=== PATIENT | female | born 1995 | race Caucasian/White ===

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

== ENCOUNTER 2017-03-24 01:05 | Emergency (ER) | payer BC ==
[~2017-03-24] VITALS: Ht 157.5 cm; Wt 54.2 kg
[~2017-03-24 01:05] MED LIST changes: -BCPILLS PO; +FEXO1TAB46 PO; +LEVO1TAB19 PO; -LORA10TA44 PO; +TRAZ1TAB5 PO; +ZLF/50 PO
[2017-03-24 01:11] VITALS: TEMP 36.5; Ht 157.5 cm; Wt 54.2 kg
[2017-03-24 02:52] LABS: BASO % 0.4 %; BASO ABS # 0.03 K/uL (0-0.2); COMPLETE YES; EOS % 6.1 %; HEMATOCRIT 38.7 % (37-47); IG% 0.3 %; LYMPH % 35.4 %; MEAN CELL VOLUME 85.2 fL (80-100); MEAN CORPUSCULAR HEMOGLOBIN 28.4 pg (25-34); MEAN CORPUSCULAR HGB CONC 33.3 g/dl (32-36); MEAN PLATELET VOLUME 10.6 fL (7.4-10.4); MONO % 7.6 %; NEUT % 50.2 %; PLATELET COUNT 285 K/uL (130-400); RED BLOOD COUNT 4.54 M/uL (4.2-5.4)
[2017-03-24] MEDS ORDERED: ALBUT/IPRATROP 3MG/0.5MG NEB 3 ML VIAL INH STA (03:03)
[2017-03-24 03:10] LABS: BUN/CREATININE RATIO 14.2 (10-20); CALCIUM 9.1 mg/dl (8.5-10.1); CREATININE 0.7 mg/dl (0.60-1.20); POTASSIUM 3.5 mmol/L (3.5-5.1)
[2017-03-24 03:16] LABS: PREG INTERNAL NEGATIVE QC NEG CLEAR BACKGROUND; PREG INTERNAL POSITIVE QC POS CONTROL LINE
[2017-03-24] MEDS ORDERED: METH4PAK PO (04:00)
--- NOTE | 2017-03-24 04:00 | EMERGENCY ROOM VISIT NOTE ---
History First contact with patient: 02:26 Chief Complaint: RESPIRATORY PROBLEMS Stated Complaint: TIGHT CHEST,BRONCHITIS,ASTHMA History of Present Illness The patient is a 22 year old female who presents to the Emergency Room with complaints of cold symptoms for the past one week. The patient states that she has had cold symptoms for the past week and has developed a cough, tightness in her chest and shortness of breath over the past 4 days. She was seen at [facility] yesterday and diagnosed with bronchitis. She was given a prescription for azithromycin and an inhaler. She has been using these medications without relief. She does have a history of asthma but states she does not have frequent flareups. She takes control pills but does not smoke. She denies recent travel. Review of Systems A complete 10 point review of systems was reviewed with the patient with pertinent positives and negatives as per history of present illness. All else were negative. Past Medical/Surgical History Medical Problems: (1) Asthma (2) Ovarian cyst Family History No significant family history Social History Smoking Status: Never Smoker Alcohol Use: none Marital Status: single Housing Status: lives with family Occupation Status: student Current/Historical Medications Scheduled Azithromycin (Zithromax), 500 MG PO DAILY Fexofenadine Hcl (Sharron), 180 MG PO DAILY Ipratropium [place] (Ipratropium [place]), 1 SPRAY RADHA BID Levonorgestrel & Eth Estradiol (Orsythia), 1 TAB PO DAILY Methylprednisolone (Medrol Dosepak), 0 PO DAILY Sertraline HCl (Sertraline HCl), 50 MG PO DAILY Scheduled PRN Albuterol Hfa (Ventolin Hfa), 2 PUFFS INH Q6H PRN for SOB/Wheezing Trazodone Hcl (Desyrel), 50 MG PO HS PRN for Sleep Physical Exam Vital Signs Date Time Temp Pulse Resp B/P (MAP) Pulse Ox O2 Delivery O2 Flow Rate FiO2 03/24/17 04:10 74 20 113/58 98 03/24/17 02:27 67 20 109/66 99 Room Air 03/24/17 01:30 98 Room Air 03/24/17 01:11 36.5 71 20 124/75 98 Room Air Physical Exam VITALS: Vitals are noted on the nurse's note and reviewed by myself. Vital signs stable. GENERAL: This is a 22-year-old female, in no acute distress, nondiaphoretic, well-developed well-nourished. SKIN: The skin was without rashes. EARS: External auditory canals clear, tympanic membranes pearly goode without erythema or effusion bilaterally. EYES: Pupils equal round and reactive to light and accommodation. MOUTH: Mucous membranes moist. Tonsils are not enlarged. Pharynx without erythema or exudate. NECK: Supple without nuchal rigidity. No lymphadenopathy. HEART: Regular rate and rhythm without murmurs gallops or rubs. LUNGS: Clear to auscultation bilaterally without wheezes, rales or rhonchi. No retractions or accessory muscle use. NEURO: Patient was alert and oriented to person place and time. Medical Decision & Procedures ER Provider Diagnostic Interpretation: CHEST X-RAY: No acute cardiopulmonary findings. Laboratory Results 03/24/17 02:40 Red Blood Count 4.54, Mean Corpuscular Volume 85.2, Mean Corpuscular Hemoglobin 28.4, Mean Corpuscular Hemoglobin Concent 33.3, Mean Platelet Volume 10.6, Neutrophils (%) (Auto) 50.2, Lymphocytes (%) (Auto) 35.4, Monocytes (%) (Auto) 7.6, Eosinophils (%) (Auto) 6.1, Basophils (%) (Auto) 0.4, Neutrophils # (Auto) 3.97, Lymphocytes # (Auto) 2.80, Monocytes # (Auto) 0.60, Eosinophils # (Auto) 0.48, Basophils # (Auto) 0.03 03/24/17 02:40 Test 03/24/17 02:40 White Blood Count 7.90 K/uL (4.8-10.8) Red Blood Count 4.54 M/uL (4.2-5.4) Hemoglobin 12.9 g/dL (12.0-16.0) Hematocrit 38.7 % (37-47) Mean Corpuscular Volume 85.2 fL (80-100) Mean Corpuscular Hemoglobin 28.4 pg (25-34) Mean Corpuscular Hemoglobin Concent 33.3 g/dl (32-36) Platelet Count 285 K/uL (130-400) Mean Platelet Volume 10.6 fL (7.4-10.4) Neutrophils (%) (Auto) 50.2 % Lymphocytes (%) (Auto) 35.4 % Monocytes (%) (Auto) 7.6 % Eosinophils (%) (Auto) 6.1 % Basophils (%) (Auto) 0.4 % Neutrophils # (Auto) 3.97 K/uL (1.4-6.5) Lymphocytes # (Auto) 2.80 K/uL (1.2-3.4) Monocytes # (Auto) 0.60 K/uL (0.11-0.59) Eosinophils # (Auto) 0.48 K/uL (0-0.5) Basophils # (Auto) 0.03 K/uL (0-0.2) RDW Standard Deviation 38.4 fL (36.4-46.3) RDW Coefficient of Variation 12.3 % (11.5-14.5) Immature Granulocyte % (Auto) 0.3 % Immature Granulocyte # (Auto) 0.02 K/uL (0.00-0.02) D-Dimer < 190 ug/L FEU (0-500) Anion Gap 7.0 mmol/L (3-11) Est Creatinine Clear Calc Drug Dose 101.4 ml/min Estimated GFR () 144.6 Estimated GFR (Non- 124.7 BUN/Creatinine Ratio 14.2 (10-20) Calcium Level 9.1 mg/dl (8.5-10.1) Human Chorionic Gonadotropin, Qual NEG (NEG) Medications Administered Medications (Trade) Dose Ordered Sig/Chelsey Route Start Time Stop Time Status Last Admin Dose Admin Albuterol/ Ipratropium (Duoneb) 3 ml NOW STAT INH 03/24/17 03:03 03/24/17 03:04 DC 03/24/17 03:06 3 ML ED Course The patient was evaluated as above. Labs were drawn and IV access was obtained. Patient was medicated with a DuoNeb. Patient was reevaluated and findings were discussed. She reported some relief. Discharge instructions were reviewed with the patient. The patient verbalized understanding of my assessment and treatment plan and was discharged home in good condition. Medical Decision Differential diagnosis includes pneumonia, bronchitis, PE, asthma exacerbation, among others. The patient is a 22-year-old female who presents today complaining of chest tightness and shortness of breath. Labs revealed no leukocytosis, anemia or concerning electrolyte abnormalities. D-dimer was not elevated. Chest x-ray was reviewed by myself and does not reveal any infiltrate or other cardiopulmonary findings. The patient was given a DuoNeb treatment with some relief. She appreciated with a Medrol Dosepak and was advised to continue medications prescribed to her by [facility]. She will follow- up with him for further evaluation. Based on the patient's presentation and work up, I feel the patient is stable for outpatient treatment. The patient was educated to return to the emergency department for any worsening of their current condition or new/concerning symptoms. She will follow up with [facility]. Medication Reconcilliation Current Medication List: was personally reviewed by me Blood Pressure Screening Patient's blood pressure: Normal blood pressure Impression Primary Impression: Upper respiratory infection Departure Information Dispostion Home / Self-Care Condition GOOD Prescriptions Methylprednisolone (MEDROL DOSEPAK) 4 Mg Ernst 0 PO DAILY, #1 PKT Prov: Irma Salinas .BRIAN 03/24/17 Referrals Gonzalo Le M.D.([place]) (PCP) Patient Instructions My [facility] Additional Instructions You have been prescribed a Medrol Dosepak. This is a steroid which will help decrease your inflammation, redness, and itch. Take the medicine as prescribed. Take the ENTIRE 6 day course of the steroids. Continue all other medications as prescribed. Follow-up with [facility] for a recheck. Return to the emergency department with any worsening or new/concerning symptoms.
[2017-03-24 04:10] VITALS: BP 113/58; PULSE 74; O2SAT 98
[2017-03-24] MEDS ORDERED: AZIT500T26 PO (05:18)
[2017-03-24] MEDS ORDERED: ATRIN6 NAE (05:21)
[2017-03-24] MEDS ORDERED: VNTHFA/IN INH (05:22)
--- NOTE | 2017-03-24 06:44 | DIAGNOSTIC IMAGING REPORT ---
CHEST 2 VIEWS ROUTINE CLINICAL HISTORY: cough, chest tightness COMPARISON STUDY: 12/31/2016 FINDINGS: The cardiac and mediastinal contours are normal. There is no focal pulmonary consolidation. There is no failure. No pleural effusions are visualized.[ IMPRESSION: No active disease in the chest. Electronically signed by: Perry Barriga M.D. 03/24/2017 6:43 AM Dictated Date/Time: 03/24/2017 6:43 AM
== END 2017-03-24 04:11 | disposition home or self-care (01) ==
LOC: C.EDB 01:07 → C.EDC 04:11
DX: J06.9 Acute upper respiratory infection, unspecified (principal); J45.909 Unspecified asthma, uncomplicated

== ENCOUNTER 2017-04-11 00:17 | Emergency (ER) | payer BC ==
[~2017-04-11] VITALS: Ht 157.5 cm; Wt 54.9 kg
[~2017-04-11 00:17] MED LIST changes: +ATRIN6 NAE; +AZIT500T26 PO; +VNTHFA/IN INH
[2017-04-11 00:21] VITALS: BP 134/83; PULSE 88; TEMP 36.6; O2SAT 97; Ht 157.5 cm; Wt 54.9 kg
[2017-04-11] MEDS ORDERED: CEPH500C PO (00:39)
[2017-04-11] MEDS ORDERED: CEFTRIAXONE SOD 350MG/ML 1 GM VIAL IM ONE (00:45)
--- NOTE | 2017-04-11 04:53 | EMERGENCY ROOM VISIT NOTE ---
History First contact with patient: 00:27 Chief Complaint: INFECTION Stated Complaint: INFECTION IN RT KNEE,SPREADING THROUGH LEG History of Present Illness The patient is a 22 year old female who presents to the Emergency Room with complaints of increasing redness and pain to her right knee over the past 2-3 days. The patient states that she was participating in a retreat over the weekend, and evidently suffered an abrasion to her right knee. She attempted to cleanse the abrasion, however it has become infected. She went to urgent care clinic earlier today, and was started on Bactrim. She states that she has continued pain and worsening redness. She is able to bear weight on the leg. She has not had fever or chills. No drainage has been noted. She rates her discomfort an 8/10. Review of Systems More than 10 systems were reviewed and otherwise negative with the exception of history of present illness. Past Medical/Surgical History Medical Problems: (1) Asthma (2) Ovarian cyst Family History No significant family history Social History Smoking Status: Never Smoker Alcohol Use: none Marital Status: single Housing Status: lives with family Occupation Status: student Current/Historical Medications Scheduled Cephalexin Monohydrate (Keflex), 500 MG PO TID Fexofenadine Hcl (Sharron), 180 MG PO DAILY Ipratropium Ulysses (Ipratropium Ulysses), 1 SPRAY RADHA BID Levonorgestrel & Eth Estradiol (Orsythia), 1 TAB PO DAILY Scheduled PRN Albuterol Hfa (Ventolin Hfa), 2 PUFFS INH Q6H PRN for SOB/Wheezing Physical Exam Vital Signs Date Time Temp Pulse Resp B/P (MAP) Pulse Ox O2 Delivery O2 Flow Rate FiO2 04/11/17 00:21 36.6 88 16 134/83 97 Room Air Physical Exam VITALS: Vitals are noted on the nurse's note and reviewed by myself. Vital signs stable. GENERAL: Well-developed, well-nourished, white female, who is in no acute distress and resting comfortably. Patient is cooperative with the examination. HEART: Regular rate and rhythm without murmurs gallops or rubs. LUNGS: Clear to auscultation bilaterally without wheezes, rales or rhonchi. No retractions or accessory muscle use. MUSCULOSKELETAL: Erythema and edema is appreciated directly over the superior aspect of the right patella. There is a healing abrasion in this area that is warm on palpation consistent with a cellulitis. The patient is able to extend and flex at the knee. She does not appear to have joint infection. There is no lymphangitic streaking. NEURO: Patient was alert and oriented to person place and time. CN II through XII grossly intact. Medical Decision & Procedures Medications Administered Medications (Trade) Dose Ordered Sig/Chelsey Route Start Time Stop Time Status Last Admin Dose Admin Ceftriaxone Sodium (Rocephin Im) 1,000 mg NOW ONCE IM 04/11/17 00:45 04/11/17 00:46 DC 04/11/17 00:44 1,000 MG ED Course Physical exam and history were performed. Nursing notes, EMR, and Medication List were personally reviewed. Patient appears to have a cellulitis of the skin over the right knee. She is started on Bactrim and just took her second dose of the medication a few hours ago. The patient will be given a shot of Rocephin. I will also add Keflex to her treatment. She is to continue the Bactrim and follow up with her primary care physician. She evidently has an appointment in 2 days and this appears reasonable. She was otherwise invited back to the ER with any new, worsening, or concerning symptoms. The chart was completed utilizing [employer] Speech Voice Recognition Software. Grammatical errors, random word insertions, pronoun errors, and incomplete sentences are an occasional consequence of this system due to software limitations, ambient noise, and hardware issues. Any formal questions or concerns about the content, text, or information contained within the body of this dictation should be directly addressed to the provider for clarification. . Medical Decision Differential diagnosis: Etiologies such as cellulitis, abscess, MRSA infection, DVT, necrotizing fasciitis, dermatitis, drug eruption, as well as others were entertained.. Impression Primary Impression: Right knee skin infection Departure Information Dispostion Home / Self-Care Condition GOOD Prescriptions Cephalexin Monohydrate (Keflex) 500 Mg Cap 500 MG PO TID for 9 Days, #27 CAP Prov: Christopher Lombardo PA-C 04/11/17 Forms HOME CARE DOCUMENTATION FORM, IMPORTANT VISIT INFORMATION Patient Instructions My [facility] Additional Instructions You were seen and evaluated today on an emergency basis only. This is not a substitute for, or an effort to provide, complete comprehensive medical care. It is not possible to recognize and treat all injuries or illnesses in a single emergency department visit. For this reason it is recommended that you followup with your primary care physician next 2-3 days for recheck of your condition. Continue Bactrim as previously prescribed. Cephalexin(Keflex) 500mg: Take one pill 3 times daily for 9 more days for your skin infection. All antibiotics can cause diarrhea. If this occurs and you feel worse or it does not resolve in 1-2 days follow up with your doctor or return to the Emergency Department as this could be signs of serious underlying problems. Any medication can cause an allergic reaction, stop the pills immediately and return to the ER for rash, hives, breathing difficulties, or swelling. You are welcome to return to the emergency department anytime with new, worsening, or concerning symptoms.
== END 2017-04-11 01:10 | disposition home or self-care (01) ==
LOC: C.EDB 00:18
DX: L08.9 Local infection of the skin and subcutaneous tissue, unspecified (principal); J45.909 Unspecified asthma, uncomplicated

== ENCOUNTER 2021-11-22 16:56 | Inpatient (IN) ==
[2021-11-22] MEDS ORDERED: SODIUM CHLORIDE 0.9% 1000ML 1,000 ML IV STA (17:59)
[2021-11-22] MEDS ORDERED: KETOROLAC TROMETHAMINE 15 MG/ML VIAL IV STA (18:08)
[2021-11-22] MEDS ORDERED: MoRPHine SULFATE 10 MG/ML CARP/VIAL IV STA (18:08)
[2021-11-22] MEDS ORDERED: ONDANSETRON INJ 2 MG/ML 2 ML VIAL IV STA (18:08)
--- NOTE | 2021-11-22 18:24 | Emergency Department Note ---
Impression & Plan Right sided abdominal pain, SBO (small bowel obstruction), Vomiting ED Provider Note NAME: SREE CORRAL AGE: 26 SEX: F : 1995 ARRIVES VIA: Walk-In INFORMANT: [Patient] ED PROVIDER(S): [Wood Tinajero MD] CHIEF COMPLAINT: Flank pain HISTORY OF PRESENT ILLNESS: The patient is a 26-year-old female who has had 3 hours of right abdominal and right flank pain. The pain came on suddenly and is severe. She did vomit. The pain is a 10/10. The patient has not noticed any urinary difficulty or frequency. No urinary burning. No unusual vaginal discharge. She has never had pain like this before. She has a history of an ovarian cyst but this does not feel like a cyst to her. There has been no cough or congestion or chest pain. No fever. She has not suffered trauma. The patient has no history of a kidney stone but there is a family history of this diagnosis. REVIEW OF SYSTEMS: See HPI for pertinent positives and negatives. A total of ten systems were reviewed and were otherwise negative. PMHx/PSHx: See Below SOCIAL HISTORY: See Below. PHYSICAL EXAM: GENERAL: Patient is in moderate distress from pain. HEENT: No acute trauma, normocephalic atraumatic, mucous membranes moist, no nasal congestion, no scleral icterus. NECK: No stridor, no adenopathy, no meningismus, trachea is midline. LUNGS: Clear to auscultation bilaterally, no wheeze, no rhonchi, breath sounds equal. HEART: Without murmurs gallops or rubs, regular rate and rhythm. ABDOMEN: Soft, moderately tender in the lower pelvis mostly on the right. The entire right side of the abdomen seems a bit tender to touch. Bowel sounds positive, no hernias, no peritonitis. EXTREMITIES: No cyanosis or edema, full range of motion of all the joints without pain or difficulty, no signs for acute trauma. NEUROLOGIC: Oriented x 3, no acute motor or sensory deficits, no focal weakness. SKIN: No rash, no jaundice, no diaphoresis. DIFFERENTIAL DIAGNOSIS: Appendicitis, ovarian cyst, ovarian torsion, ectopic , TOA, PID, diverticulitis, UTI, obstruction, mesenteric ischemia, aortic pathology, inflammatory bowel disease, renal colic, PUD, pancreatitis, biliary pathology, hernia, volvulus, constipation, as well as other pathologies. EMERGENCY DEPARTMENT COURSE/PROCEDURES: MEDICAL DECISION MAKING: There is a mild leukocytosis which could be consistent with pain or infection. There is a normal hemoglobin and platelet count. No significant electrolyte abnormality or renal failure. No concerning liver enzyme elevation. No evidence for pancreatitis. testing returned negative. Urinalysis did not show infection or blood. Abdominal and pelvis CT showed a small bowel obstruction, no appendicitis, no ureteral obstruction. Pelvic ultrasound did not show any evidence for ovarian torsion or ovarian cyst. On exam, the patient looked to be in pain and she was tender in the lower abdomen and the right abdomen. The patient received IV saline for hydration. She received IV Zofran, IV morphine and IV Toradol, she feels improved. Because of the findings of small bowel obstruction, I did order for an NG tube to low intermittent suction. I spoke with the patient and her family. I spoke with case management, the on- call surgeon has been consulted. Hospitalization is warranted. Past Med/Surg History Medical History Ovarian cyst Social History Smoking Status: Never smoker Feels Safe at Home: Yes Allergies Allergies Allergy/AdvReac Type Severity Reaction Status Date / Time cat dander Allergy Intermediate Cough, Verified 11/22/21 19:02 SNEEZING, RUNNY NOSE dog dander Allergy Intermediate Cough, Verified 11/22/21 19:02 SNEEZING, RUNNY NOSE gluten Allergy Intermediate Gastrointestinal Verified 11/22/21 19:02 Upset-HEADACHE ENVIRONMENTAL Allergy Intermediate Cough, Uncoded 11/22/21 19:02 SNEEZING, RUNNY NOSE Home Meds Home Medications Medication Instructions Recorded Confirmed fluticasone propionate 50 1 spray INTRANASAL BID 04/11/18 11/22/21 mcg/actuation nasal spray,suspension buspirone 10 mg tablet 10 mg PO BID 11/22/21 11/22/21 loratadine 10 mg tablet (Claritin) 10 mg PO DAILY 11/22/21 11/22/21 norethindrone (contraceptive) 0.35 0.35 mg PO DAILY 11/22/21 11/22/21 mg tablet sertraline 100 mg tablet 100 mg PO DAILY 11/22/21 11/22/21 trazodone 50 mg tablet 25 mg PO HS 11/22/21 11/22/21 Results & Data (ED) Vital Signs Vital Signs - 24 hr 11/22/21 16:59 Temperature 36.8 C Temperature Source Temporal Artery Scan Pulse Rate 71 Pulse Rhythm Regular Pulse Strength Normal Respiratory Rate 20 Respiratory Effort / Characteristics Non-Labored Spontaneous Respiratory Depth Normal Respiratory Pattern Regular Blood Pressure 108/74 Blood Pressure Mean 85 Blood Pressure Position Sitting Pulse Oximetry 96 Oxygen Delivery Method Room Air Sepsis Recent Fever Within 48 Hours No Sepsis New/Unexplained Change in Mental Status N/A Sepsis Action Taken by Nursing No Action Required Home Medications Current Medication List: was personally reviewed by me Laboratory Data Attestation: I reviewed the patient's lab results. Result diagrams: 11/22/21 18:07 11/22/21 18:07 Lab Results 11/22/21 11/22/21 11/22/21 Range/Units 18:07 18:07 18:07 WBC 10.87 H (4.8-10.8) K/uL RBC 4.50 (4.2-5.4) M/uL Hgb 13.6 (12.0-16.0) g/dL Hct 40.2 (37-47) % MCV 89.3 (80-100) fL MCH 30.2 (25-34) pg MCHC 33.8 (32-36) g/dL RDW Std Deviation 38.5 (36.4-46.3) fL RDW Coeff of Carlie 11.9 (11.5-14.5) % Plt Count 255 (130-400) K/uL MPV 11.7 H (7.4-10.4) fL Immature Gran % (Auto) 0.2 % Neut % (Auto) 80.4 % Lymph % (Auto) 14.1 % [place] % (Auto) 3.9 % Eos % (Auto) 1.1 % Baso % (Auto) 0.3 % Neut # (Auto) 8.75 H (1.4-6.5) K/uL Lymph # (Auto) 1.53 (1.2-3.4) K/uL [place] # (Auto) 0.42 (0.11-0.59) K/uL Eos # (Auto) 0.12 (0-0.5) K/uL Baso # (Auto) 0.03 (0-0.2) K/uL Immature Gran # (Auto) 0.02 (0.00-0.02) K/uL Sodium 137 (136-145) mmol/L Potassium 3.7 (3.5-5.1) mmol/L Chloride 103 (98-107) mmol/L Carbon Dioxide 26 (21-32) mmol/L Anion Gap 8 (3-11) BUN 10 (6-23) mg/dl Creatinine 0.93 (0.6-1.2) mg/dl Est Cr Clr Drug Dosing 73.8 ml/min Est GFR ( Amer) 99.7 ml/min Est GFR (Non-Af Amer) 86.0 ml/min BUN/Creatinine Ratio 10.8 (10-20) Glucose 95 (70-99(Fasting)) mg/dl Calcium 9.7 (8.5-10.1) mg/dl Total Bilirubin 0.5 (0.2-1.0) mg/dl AST 16 (13-39) U/L ALT 12 (7-52) U/L Alkaline Phosphatase 41 (34-104) U/L Total Protein 7.5 (6.0-8.3) gm/dl Albumin 4.8 (3.4-5.0) gm/dl Globulin 2.7 (2.5-4.0) gm/dl Albumin/Globulin Ratio 1.8 (0.9-2) Lipase 26 (11-82) U/L HCG, Qual Negative (Negative) Urine Color Urine Appearance (Clear) Urine pH (4.5-7.5) Ur Specific [place] (1.000-1.030) Urine Protein (Negative) Urine Glucose (UA) (Negative) Urine Ketones (Negative) Urine Blood (Negative) Urine Nitrite (Negative) Urine Bilirubin (Negative) Urine Urobilinogen (Negative) Ur Leukocyte Esterase (Negative) 11/22/21 Range/Units 18:07 WBC (4.8-10.8) K/uL RBC (4.2-5.4) M/uL Hgb (12.0-16.0) g/dL Hct (37-47) % MCV (80-100) fL MCH (25-34) pg MCHC (32-36) g/dL RDW Std Deviation (36.4-46.3) fL RDW Coeff of Carlie (11.5-14.5) % Plt Count (130-400) K/uL MPV (7.4-10.4) fL Immature Gran % (Auto) % Neut % (Auto) % Lymph % (Auto) % [place] % (Auto) % Eos % (Auto) % Baso % (Auto) % Neut # (Auto) (1.4-6.5) K/uL Lymph # (Auto) (1.2-3.4) K/uL [place] # (Auto) (0.11-0.59) K/uL Eos # (Auto) (0-0.5) K/uL Baso # (Auto) (0-0.2) K/uL Immature Gran # (Auto) (0.00-0.02) K/uL Sodium (136-145) mmol/L Potassium (3.5-5.1) mmol/L Chloride (98-107) mmol/L Carbon Dioxide (21-32) mmol/L Anion Gap (3-11) BUN (6-23) mg/dl Creatinine (0.6-1.2) mg/dl Est Cr Clr Drug Dosing ml/min Est GFR ( Amer) ml/min Est GFR (Non-Af Amer) ml/min BUN/Creatinine Ratio (10-20) Glucose (70-99(Fasting)) mg/dl Calcium (8.5-10.1) mg/dl Total Bilirubin (0.2-1.0) mg/dl AST (13-39) U/L ALT (7-52) U/L Alkaline Phosphatase (34-104) U/L Total Protein (6.0-8.3) gm/dl Albumin (3.4-5.0) gm/dl Globulin (2.5-4.0) gm/dl Albumin/Globulin Ratio (0.9-2) Lipase (11-82) U/L HCG, Qual (Negative) Urine Color Dark Yellow Urine Appearance Clear (Clear) Urine pH >= 9.0 H (4.5-7.5) Ur Specific [place] 1.013 (1.000-1.030) Urine Protein Negative (Negative) Urine Glucose (UA) Negative (Negative) Urine Ketones Negative (Negative) Urine Blood Negative (Negative) Urine Nitrite Negative (Negative) Urine Bilirubin Negative (Negative) Urine Urobilinogen Negative (Negative) Ur Leukocyte Esterase Negative (Negative) Administered Medications Discontinued Medications Sodium Chloride (Nss 1000ml) 1,000 mls @ 999 mls/hr IV .Q1H1M STA Stop: 11/22/21 18:59 Last Infusion: 11/22/21 19:12 Dose: 0 mls/hr Documented by: [id number] Admin: 11/22/21 18:09 Dose: 999 mls/hr Documented by: [id number] Ketorolac Tromethamine (Ketorolac Tromethamine 15 Mg/Ml Vial) 15 mg IV NOW STA Stop: 11/22/21 18:09 Last Admin: 11/22/21 18:16 Dose: 15 mg Documented by: [id number] Morphine Sulfate (Morphine Sulfate 10 Mg/Ml Carp/Vial) 6 mg IV NOW STA Stop: 11/22/21 18:09 Last Admin: 11/22/21 18:16 Dose: 6 mg Documented by: [id number] Ondansetron HCl (Ondansetron Inj 2 Mg/Ml 2 Ml Vial) 4 mg IV NOW STA Stop: 11/22/21 18:09 Last Admin: 11/22/21 18:16 Dose: 4 mg Documented by: [id number] Imaging Data Radiologist's Impression: Abdomen/Pelvis CT 11/22/21 18:08 CT OF THE ABDOMEN AND PELVIS WITHOUT CONTRAST CLINICAL HISTORY: Right flank pain. COMPARISON STUDY: CT of the abdomen and pelvis April 12, 2013. Abdominal series December 31, 2016. TECHNIQUE: Axial images of the abdomen and pelvis were obtained without IV contrast. Images were reviewed in the axial, sagittal, and coronal planes. Automated exposure control was utilized for the study. A dose lowering technique was utilized adhering to the principles of ALARA. FINDINGS: Lung bases are unremarkable. No pneumatosis, free air or portal venous gas is present. No renal, ureteral or bladder calculi are present. The renal pyramids are slightly dense. There is no hydronephrosis. Evaluation of the remainder of the abdomen and pelvis is suboptimal on this unenhanced examination. The liver, spleen, adrenal glands and pancreas are unremarkable. There is no biliary or pancreatic ductal dilatation. A small amount of fluid within the pelvis is noted. There is possible visualization of the appendix on axial image [id number]. If so, this portion of the appendix is normal. I recommend the appendix is suboptimally assessed on this exam and partially obscured. Note is made of multiple loops of dilated fluid-filled mid small bowel which measure up to 3 cm in caliber. Small bowel feces sign is noted with transition point within the left lower quadrant shown on axial image [id number]. Distal small bowel is markedly decompressed. Etiology for the small bowel obstruction is not clear on this exam. No acute fracture or suspicious lesion within the visualized skeletal structures. No lymphadenopathy is identified on this unenhanced study. IMPRESSION: 1. Multiple loops of dilated fluid-filled mid small bowel with transition point within the left lower quadrant. The findings represent a small bowel obstruction, the etiology of which is not clear on this exam. Contrast enhanced CT of the abdomen and pelvis could be obtained for further evaluation as indicated. Small amount of fluid within the pelvis. 2. No urinary calculi or hydronephrosis. 3. Appendix not well visualized on this unenhanced exam but visualized portions likely normal. ACT 112: Negative or not required by law. Electronically signed by: Bayron Barnett M.D. 11/22/2021 7:40 PM Pelvis Ultrasound 11/22/21 19:18 PELVIC ULTRASOUND CLINICAL HISTORY: Pelvic pain. Possible cyst or torsion. COMPARISON STUDY: CT of the abdomen and pelvis performed earlier today. TECHNIQUE: Transabdominal and transvaginal sonography of the pelvis was performed. FINDINGS: Small to moderate amount of fluid within the pelvis is noted. Uterus measures 5.1 x 2.7 x 3.3 cm. Endometrium measures 4 mm in thickness. There is color flow within each ovary. The right ovary measures 2.9 x 1.5 x 2.5 cm the left ovary measures 2.1 x 1.5 x 2.5 cm. There is no adnexal mass. IMPRESSION: 1. Normal sonographic appearance of the ovaries and uterus. 2. Small to moderate amount of fluid within the pelvis. ACT 112: Negative or not required by law. Electronically signed by: Bayron Barnett M.D. 11/22/2021 8:47 PM Discharge Plan Visit Data Chief Complaint: Flank Pain Stated Complaint: RLQ PAIN, R FLANK PAIN, VOMITING ED Provider: Wood Tinajero Discharge Problem: Right sided abdominal pain, SBO (small bowel obstruction), Vomiting Patient Disposition: Admitted As Inpatient Condition: Fair Forms Stand Alone Forms: [employer] Prescriptions Prescriptions: No Action fluticasone propionate 50 mcg/actuation [place],Suspension 1 spray INTRANASAL BID RF: 0 trazodone 50 mg tablet 25 mg PO HS RF: 0 sertraline 100 mg tablet 100 mg PO DAILY RF: 0 buspirone 10 mg tablet 10 mg PO BID RF: 0 norethindrone (contraceptive) 0.35 mg tablet 0.35 mg PO DAILY RF: 0 loratadine [Claritin] 10 mg Tablet 10 mg PO DAILY RF: 0 Referrals Referrals: Gonzalo Le MD [Primary Care Provider] -
[2021-11-22 18:34] LABS: Basophils # (auto) 0.03 K/uL (0-0.2); Basophils % (auto) 0.3 %; Eosinophils # (auto) 0.12 K/uL (0-0.5); Eosinophils % (auto) 1.1 %; Hematocrit (blood only) 40.2 % (37-47); Hemoglobin 13.6 g/dL (12.0-16.0); Immature Granulocytes # (auto) 0.02 K/uL (0.00-0.02); Immature Granulocytes % (auto) 0.2 %; Lymphocytes # (auto) 1.53 K/uL (1.2-3.4); Lymphocytes % (auto) 14.1 %; Mean Corpuscular Hemoglobin 30.2 pg (25-34); Mean Corpuscular Hgb Conc 33.8 g/dL (32-36); Mean Corpuscular Volume 89.3 fL (80-100); Mean Platelet Volume 11.7 fL (7.4-10.4); Monocytes # (auto) 0.42 K/uL (0.11-0.59); Monocytes % (auto) 3.9 %; Neutrophils # (auto) 8.75 K/uL (1.4-6.5); Neutrophils % (auto) 80.4 %; Platelet Count 255 K/uL (130-400); RDW Coefficient of Variation 11.9 % (11.5-14.5); RDW Standard Deviation 38.5 fL (36.4-46.3); White Blood Count 10.87 K/uL (4.8-10.8)
[2021-11-22 18:42] LABS: Albumin Globulin Ratio 1.8 (0.9-2); Albumin Level 4.8 gm/dl (3.4-5.0); BUN Creatinine Ratio 10.8 (10-20); Bilirubin,Total 0.5 mg/dl (0.2-1.0); Calcium 9.7 mg/dl (8.5-10.1); Creatinine Clr Calc Pharmacy 73.8 ml/min; Est GFR (African American) 99.7 ml/min; Globulin 2.7 gm/dl (2.5-4.0); Potassium 3.7 mmol/L (3.5-5.1); Total Protein 7.5 gm/dl (6.0-8.3)
[2021-11-22 18:53] LABS: Pregnancy Test, Serum Negative (Negative)
[2021-11-22 18:54] LABS: Appearance Urine Clear (Clear); Bilirubin Urine Negative (Negative); Blood Urine Negative (Negative); Color Urine Dark Yellow; Glucose Urine UA Negative (Negative); Ketones Urine Negative (Negative); Leukocyte Esterase Urine Negative (Negative); Nitrite Urine Negative (Negative); Protein Urine Negative (Negative); Specific Gravity Urine 1.013 (1.000-1.030); Urobilinogen Urine Negative (Negative); pH Urine >= 9.0 (4.5-7.5)
--- NOTE | 2021-11-22 19:42 | CT Scan Report ---
CT OF THE ABDOMEN AND PELVIS WITHOUT CONTRAST CLINICAL HISTORY: Right flank pain. COMPARISON STUDY: CT of the abdomen and pelvis April 12, 2013. Abdominal series December 31, 2016. TECHNIQUE: Axial images of the abdomen and pelvis were obtained without IV contrast. Images were revi ewed in the axial, sagittal, and coronal planes. Automated exposure control was utilized for the latoya dy. A dose lowering technique was utilized adhering to the principles of ALARA. FINDINGS: Lung bases are unremarkable. No pneumatosis, free air or portal venous gas is present. No r enal, ureteral or bladder calculi are present. The renal pyramids are slightly dense. There is no hyd ronephrosis. Evaluation of the remainder of the abdomen and pelvis is suboptimal on this unenhanced e xamination. The liver, spleen, adrenal glands and pancreas are unremarkable. There is no biliary or p ancreatic ductal dilatation. A small amount of fluid within the pelvis is noted. There is possible vi sualization of the appendix on axial image [id number]. If so, this portion of the appendix is normal. I recommend the appendix is suboptimally assessed on this exam and partially obscured. Note is made of multiple loops of dilated fluid-filled mid small bowel which measure up to 3 cm in caliber. Small aditi wel feces sign is noted with transition point within the left lower quadrant shown on axial image [id number]. Distal small bowel is markedly decompressed. Etiology for the small bowel obstruction is not cl ear on this exam. No acute fracture or suspicious lesion within the visualized skeletal structures. N o lymphadenopathy is identified on this unenhanced study. IMPRESSION: 1. Multiple loops of dilated fluid-filled mid small bowel with transition point within the left lower quadrant. The findings represent a small bowel obstruction, the etiology of which is not clear on th is exam. Contrast enhanced CT of the abdomen and pelvis could be obtained for further evaluation as i ndicated. Small amount of fluid within the pelvis. 2. No urinary calculi or hydronephrosis. 3. Appendix not well visualized on this unenhanced exam but visualized portions likely normal. ACT 112: Negative or not required by law. Electronically signed by: Bayron Barnett M.D. 11/22/2021 7:40 PM
--- NOTE | 2021-11-22 20:48 | Ultrasound Report ---
PELVIC ULTRASOUND CLINICAL HISTORY: Pelvic pain. Possible cyst or torsion. COMPARISON STUDY: CT of the abdomen and pelvis performed earlier today. TECHNIQUE: Transabdominal and transvaginal sonography of the pelvis was performed. FINDINGS: Small to moderate amount of fluid within the pelvis is noted. Uterus measures 5.1 x 2.7 x 3 .3 cm. Endometrium measures 4 mm in thickness. There is color flow within each ovary. The right ovary measures 2.9 x 1.5 x 2.5 cm the left ovary measures 2.1 x 1.5 x 2.5 cm. There is no adnexal mass. IMPRESSION: 1. Normal sonographic appearance of the ovaries and uterus. 2. Small to moderate amount of fluid within the pelvis. ACT 112: Negative or not required by law. Electronically signed by: Bayron Barnett M.D. 11/22/2021 8:47 PM
[2021-11-22] MEDS ORDERED: BENZOCAINE/TETRACAIN/BUTAM 50 APPLN/5 GM CAN EXT STA (21:33)
[2021-11-22] MEDS ORDERED: MoRPHine SULFATE 2 MG/ML CARP IV PRN (22:09)
[2021-11-22] MEDS ORDERED: ACETAMINOPHEN 1,000 MG/100 ML VIAL IV PRN (22:09)
--- NOTE | 2021-11-22 22:17 | History & Physical Report ---
Date of Service November 22, 2021 Assessment & Plan (1) SBO (small bowel obstruction): Plan: Due to the patient's clinical presentation, as well as her imaging findings she will be admitted to the hospital and we will proceed as follows: We will maintain n.p.o. status We will maintain her NG tube to low intermittent suction We will provide hydration with IV fluids We will provide analgesics We will provide antiemetics We will follow serial labs Based on patient's clinical course we may consider repeating a CT scan tomorrow utilizing oral contrast to get a better delineation of what the potential cause of her small bowel obstruction may be. At the present time the etiology of her small bowel obstruction is unclear. If the patient develops any evidence of clinical deterioration overnight we will consider repeating her CAT scan at an earlier time. The above plan was discussed with the patient and her parents were present at bedside We will use SCDs for DVT prevention. We will avoid chemical means until to certain the patient does not require any surgical or procedural intervention Additional recommendations be forthcoming based on her clinical course as it unfolds She will be a level 1 full code History of Present Illness Chief Complaint: Abdominal pain Primary Care Provider: Gonzalo Le MD This is a 26-year-old female who presented to [facility] emergency department secondary to abdominal pain. The patient notes that she was feeling fine yesterday and earlier today in her usual state of health. Patient says that she ate lunch at approximately 2:00 PM but 3:00 PM she developed sudden onset of generalized abdominal pain. She did have associated nausea and vomiting. The patient denies any fevers, shakes, or chills. She notes that she had a normal bowel movement last night. Patient says that the pain radiates through to her back. She does not identify any palliative or provocative factors. She denies any prior abdominal surgeries. Patient does note that she is sensitive to gluten but has never formally been diagnosed with celiac disease. Because of her symptomatology she presented to the emergency department. In the emergency department the patient had labs and imaging which I independently reviewed. CBC revealed white blood cell count was slightly elevated at 10.8. Hemoglobin and hematocrit were both noted to be normal as was her platelet count. Chemistry profile showed sodium, potassium, BUN, and creatinine were all normal. There were no elevation of her LFTs or lipase. A test was negative. Urinalysis was not indicative of infection. And a COVID test was negative. As the patient did report a history of previous ovarian cysts a pelvic ultrasound was performed. This study was noted to be normal. Since arrival to the emergency department the patient has received analgesics in the form of morphine as well as Zofran. She continued to have nausea so the treating emergency room physician did order an NG tube was placed. Upon placement of the NG tube the patient had some further emesis but the NG tube did drain approximately 200 cc of bilious material. At the time of my interview she was in no distress. Allergies Allergy/AdvReac Type Severity Reaction Status Date / Time cat dander Allergy Intermediate Cough, Verified 11/22/21 19:02 SNEEZING, RUNNY NOSE dog dander Allergy Intermediate Cough, Verified 11/22/21 19:02 SNEEZING, RUNNY NOSE gluten Allergy Intermediate Gastrointestinal Verified 11/22/21 19:02 Upset-HEADACHE ENVIRONMENTAL Allergy Intermediate Cough, Uncoded 11/22/21 19:02 SNEEZING, RUNNY NOSE Home Medications Medication Instructions Recorded Confirmed Type fluticasone propionate 50 1 spray INTRANASAL BID 04/11/18 11/22/21 History mcg/actuation nasal spray,suspension buspirone 10 mg tablet 10 mg PO BID 11/22/21 11/22/21 History loratadine 10 mg tablet (Claritin) 10 mg PO DAILY 11/22/21 11/22/21 History norethindrone (contraceptive) 0.35 0.35 mg PO DAILY 11/22/21 11/22/21 History mg tablet sertraline 100 mg tablet 100 mg PO DAILY 11/22/21 11/22/21 History trazodone 50 mg tablet 25 mg PO HS 11/22/21 11/22/21 History Past Med/Surg History Medical History Ovarian cyst Social History Smoking Status: Never smoker Second Hand Exposure: No; Do You Dip or Chew Tobacco: No; Tobacco Cessation Education Requested by Patient: No Hx Alcohol Use: Yes Alcohol type: other Hx Substance Use: No Preferred Language: Indian Communication Ability: Effective 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 Beliefs That Will Affect Care: None Current Living Situation: Parent and Family Other Information That Helps Us Care for You: No Feels Safe at Home: Yes Safety Concerns: Feels Safe At This Time Assistive Devices: Glasses Review of Systems Constitutional: no fever and no chills Eyes: no eye pain Ear, Nose, Mouth, Throat: no ear pain Respiratory: no cough and no dyspnea Cardiovascular: no chest pain Gastrointestinal: as per Subjective / HPI, + abdominal pain, + nausea and + vomiting Genitourinary: no dysuria Musculoskeletal: + back pain (Radiating from abdomen) Integumentary: no rash Neurologic: no localized weakness Physical Exam Constitutional: well developed, well nourished and + thin; no acute distress Eyes: no conjunctival abnormality ENMT: Ears: no hearing impairment and no external ear abnormality Mouth: no oropharynx abnormality Mucous membranes are dry Neck: trachea midline Respiratory: normal respiratory effort, lungs clear to auscultation Cardiovascular: Rate/Rhythm: regular rate and regular rhythm Gastrointestinal (Abdomen): Patient's abdomen is soft, nonrigid, and nondistended. There is no pain with percussion. Patient did have generalized pain with palpation which appeared to be greatest just to the left of the umbilicus. There is no rebound tenderness or guarding. I did not appreciate any hernias. Musculoskeletal: No calf tenderness or lower extremity edema Skin: no rashes Neurologic: moves all extremities Psychiatric: A+Ox3, euthymic affect Results & Data Results & Data ([facility]) Vital Signs (Past 12 Hours) Vital Signs Temp Pulse Resp BP Pulse Ox 11/22/21 16:59 36.8 C 71 20 108/74 96 Code Status & VTE Plan VTE Prophylaxis Plan VTE Prophylaxis will be ordered: Yes Supervising Physician Co-Signing Physician Notes I personally saw and evaluated the patient with Venkatesh Barone PA-C and agree with the assessment and plan. 26-year-old female with a small bowel obstruction, no history of previous abdominal surgery CT images and results personally viewed by me, she has some dilated small bowel as well as small bowel feces sign in her entire colon is filled with stool We will admit the patient keep her n.p.o. and place an NG tube We will give her IV hydration We will monitor her abdominal exam for any signs of ischemic bowel PG Care Time/CCT Total # of Minutes Spent Total Time Spent with Patient: Total time spent is greater than 50% in coordination of care (as documented) at patient's floor/unit and/or counseling patient: Coding Level of Care Code 65602 Initial Inpt Care Lvl 3 Diagnoses SBO (small bowel obstruction) K56.609
[2021-11-22] MEDS: LACTATED RINGER'S 1,000 ML IV SCH (22:27)
[2021-11-22] MEDS: ONDANSETRON INJ 2 MG/ML 2 ML VIAL IV PRN (22:34)
[2021-11-23] MEDS ORDERED: ONDANSETRON INJ 2 MG/ML 2 ML VIAL IV STA (01:39)
--- NOTE | 2021-11-23 01:54 | Communication Note ---
Date of Service: November 23, 2021 Called by RN that patient was noting some continued nausea. Structured RN to give 4 mg of IV Zofran x1 extra dose at this time. I visited with patient upon the med/surge serna. She notes that her abdominal pain that was present earlier has slightly improved. He does have some intermittent nausea despite NG tube. She is noted to have some bilious/bloody drainage from her NG tube. On exam patient remains normotensive and not tachycardic. She remains afebrile. Her pulse ox is 98% on room air. Patient's abdomen is soft, nonrigid, nondistended. Bowel sounds are hypoactive. With palpation of her abdomen there appears to be less pain than what was noted during prior exam in the emergency department. I discussed with RNpatient has not required any additional analgesics. Her most recent dose of morphine was 2 mg at approximately 2210 on 11/22/2021. Will continue with supportive measures. In addition we will order a one-time dose of IV Protonix. I discussed further with RN and instructed him to notify me if patient has any change in status including but not limited to decreased blood pressure, development of tachycardia, or worsening abdominal exam.
[2021-11-23] MEDS ORDERED: PANTOprazole 40 MG in SYRINGE 0 ML IV ONE (02:30)
[2021-11-23] MEDS ORDERED: CHLORASEPTIC 1.4% SOLN 180 ML BTL MT PRN (03:54)
--- NOTE | 2021-11-23 06:01 | Communication Note ---
Date of Service: November 23, 2021 Patient revisited at bedside at approximately 5:30 AM on 11/23/2021. She notes that her abdominal pain has improved somewhat, however she does continue to have intermittent bouts of nausea. In addition she reports discomfort from NG tube and intermittent epistaxis from her NG tube. On exam her abdomen is soft, nonfirm, and nondistended. Bowel sounds remain hypoactive. With palpation of her abdomen there is less of a painful response elicited. Vital signs reveal patient remains normotensive without tachycardia and she has been afebrile. Repeat labs have been ordered for this morning which are pending. We will continue to follow closely.
[2021-11-23] MEDS: LACTATED RINGER'S 1,000 ML IV SCH ×2 (06:40→15:21)
[2021-11-23] MEDS: ONDANSETRON INJ 2 MG/ML 2 ML VIAL IV PRN ×2 (06:41→20:48)
[2021-11-23 07:32] LABS: Basophils # (auto) 0.01 K/uL (0-0.2); Basophils % (auto) 0.1 %; Eosinophils # (auto) 0.01 K/uL (0-0.5); Eosinophils % (auto) 0.1 %; Hematocrit (blood only) 37.2 % (37-47); Hemoglobin 12.4 g/dL (12.0-16.0); Immature Granulocytes # (auto) 0.02 K/uL (0.00-0.02); Immature Granulocytes % (auto) 0.2 %; Lymphocytes # (auto) 1.26 K/uL (1.2-3.4); Lymphocytes % (auto) 11.9 %; Mean Corpuscular Hemoglobin 29.6 pg (25-34); Mean Corpuscular Hgb Conc 33.3 g/dL (32-36); Mean Corpuscular Volume 88.8 fL (80-100); Mean Platelet Volume 11.7 fL (7.4-10.4); Monocytes # (auto) 0.66 K/uL (0.11-0.59); Monocytes % (auto) 6.2 %; Neutrophils # (auto) 8.62 K/uL (1.4-6.5); Neutrophils % (auto) 81.5 %; Platelet Count 259 K/uL (130-400); RDW Coefficient of Variation 12.1 % (11.5-14.5); RDW Standard Deviation 39.1 fL (36.4-46.3); Red Blood Count 4.19 M/uL (4.2-5.4); White Blood Count 10.58 K/uL (4.8-10.8)
[2021-11-23 07:54] LABS: BUN Creatinine Ratio 13.6 (10-20); Calcium 8.9 mg/dl (8.5-10.1); Est GFR (African American) 143.3 ml/min; Est GFR (Non-African American) 123.6 ml/min; Magnesium 2.1 mg/dl (1.7-2.4); Potassium 3.7 mmol/L (3.5-5.1)
--- NOTE | 2021-11-23 09:19 | Surgery Progress Note ---
Date of Service November 23, 2021 Assessment & Plan (1) SBO (small bowel obstruction): Plan: She slightly improved since admission Her abdominal exam is without peritoneal signs and she has some improvement of pain We will plan to get a repeat CT of the abdomen pelvis with p.o. and IV contrast today Further treatment plan pending these results Admission and Anticipated Discharge Date Admission Date: November 22, 2021 Subjective Patient seen and examined. Afebrile. States she has vomited 3-4 times since NG tube placement. States her abdominal pain is somewhat improved since admission. Denies any flatus or bowel movement. Review of Systems Constitutional: no fever and no chills Gastrointestinal: + abdominal pain, + nausea, + vomiting and + constipation Physical Exam Constitutional: WD/WN, vitals as above Eyes: PERRL, conjunctivae normal, anicteric sclerae Respiratory: normal respiratory effort, lungs clear to auscultation Cardiovascular: RRR, no murmur, no edema Gastrointestinal (Abdomen): Inspection/Auscultation: abdomen normal to inspection; abdomen not distended Percussion/Palpation: + abdomen tender (Right greater than left) and abdomen soft; no guarding, abdomen not rigid and no hernia Musculoskeletal: no cyanosis or clubbing, extremities motor strength 5/5 Skin: no rashes, warm and dry Neurologic: PERRL, EOMI, accommodation nl, no face palsy, no dysarthria Psychiatric: A+Ox3, euthymic affect Results & Data ([facility]) Vital Signs (Past 12 Hours) Vital Signs Temp Pulse Pulse Pulse Resp BP BP 11/23/21 07:04 37 C 84 17 102/64 11/23/21 00:00 36.7 C 88 14 106/69 11/22/21 23:26 84 20 110/68 11/22/21 22:33 111 H 20 Pulse Ox 11/23/21 07:04 99 11/23/21 00:00 98 11/22/21 23:26 99 11/22/21 22:33 98 PG Care Time/CCT Total # of Minutes Spent Total Time Spent with Patient: Total time spent is greater than 50% in coordination of care (as documented) at patient's floor/unit and/or counseling patient: Coding Level of Care Code 94503 Subseq Hosp Care Lvl 3 Diagnoses SBO (small bowel obstruction) K56.609
[2021-11-23] MEDS ORDERED: PROMETHAZINE HCL 12.5 MG in SODIUM CHLORIDE 0.9% 50 ML IV PRN (09:23)
[2021-11-23] MEDS ORDERED: OPTIRAY 320 100ml IV ONE (11:42)
--- NOTE | 2021-11-23 11:59 | CT Scan Report ---
CT OF THE ABDOMEN AND PELVIS WITH CONTRAST CLINICAL HISTORY: eval for SBO, contrast may be given via NGT COMPARISON STUDY: CT of the abdomen and pelvis November 22, 2021. TECHNIQUE: Following IV administration of 94 mL of Optiray, axial images of the abdomen and pelvis we re obtained from the lung bases to the proximal femurs. Images were reviewed in the axial, sagittal, and coronal planes. IV contrast was administered without complication. Automated exposure control wa s utilized for the study. A dose lowering technique was utilized adhering to the principles of ALARA . Oral contrast was administered. CT DOSE: 393.58 mGycm FINDINGS: Tip of nasogastric tube is within the body of the stomach. No pneumatosis, free air or port al venous gas is present. Liver, spleen, adrenal glands, kidneys and pancreas are normal. There is no biliary or pancreatic ductal dilatation. Small bowel dilatation on CT of November 22, 2021 has resolved. There is no evidence for a bowel obstruction on this exam. There is apparent mild wall thickening of the cecum and proximal to mid ascending colon. There is trace fluid within the right paracolic gutter . Appendix is partially visualized but visualized portions are normal. Bladder is mildly distended. N o pneumatosis, free air or portal venous gas is present. Major vasculature is patent. IMPRESSION: 1. Resolution of the small bowel obstruction shown on prior CT. 2. Mild wall thickening of the cecum and proximal ascending colon. This is likely due to underdistent ion however a nonspecific colitis could appear similar. 3. Appendix partially obscured but visualized portions normal. No evidence for acute appendicitis. ACT 112: Negative or not required by law. Electronically signed by: Bayron Barnett M.D. 11/23/2021 11:58 AM
[2021-11-23] MEDS: CIPROFLOXACIN / D5W 400 MG/200 ML BAG IV SCH ×2 (13:04→19:58)
[2021-11-23] MEDS: metroNIDAZOLE 500 MG TAB PO SCH ×2 (13:04→20:45)
[2021-11-23] MEDS: busPIRone 5 MG TAB PO SCH (20:44)
[2021-11-23] MEDS ORDERED: traZODone HCL 50 MG TAB PO SCH (21:00)
[2021-11-24] MEDS: LACTATED RINGER'S 1,000 ML IV SCH ×2 (00:48→10:35)
[2021-11-24] MEDS: metroNIDAZOLE 500 MG TAB PO SCH ×2 (05:55→13:07)
[2021-11-24] MEDS: busPIRone 5 MG TAB PO SCH (08:11)
[2021-11-24] MEDS: CIPROFLOXACIN / D5W 400 MG/200 ML BAG IV SCH (08:11)
--- NOTE | 2021-11-24 08:17 | Surgery Progress Note ---
Date of Service November 24, 2021 Assessment & Plan (1) SBO (small bowel obstruction): Plan: Patient here with abdominal pain, n/v, initial CT scan concerning for SBO -Repeat CT with po/iv contrast yesterday revealed resolution of SBO, with some mild wall thickening of the cecum, ?colitis -She tolerated NGT removal and advancement of her diet and she has been having + bowel function -She was started on IV cipro and po flagyl for concern of colitis. Her pain is improved today, although still mildly present upon palpation in the RLQ -Pending patient continues to do well this AM, we will consider discharging her to home today on a 10 day course of abx and f/u with Dr. Faye in clinic Admission and Anticipated Discharge Date Admission Date: November 22, 2021 Supervising Physician Co-Signing Physician Notes I personally saw and evaluated the patient with Leona Singh PA-C and agree with the assessment and plan. 26-year-old female with a resolved small bowel obstruction and mild colitis CT images and results from yesterday personally viewed by me, no small bowel obstruction noted, she does have some under distention versus mild inflammation of her cecum and ascending colon NG tube was removed yesterday and she has been tolerating and advancing diet since that time She had a bowel movement yesterday and has had no nausea or vomiting since We will treat her with 10 days of oral Cipro and Flagyl for her colitis and have her follow-up with PCP and/or gastroenterology as an outpatient Discharge home today Subjective Patient says she is feeling much better. She tolerated a diet yesterday evening of chicken and rice. Denies nausea/vomiting. She is passing flatus and BMs. Some pain in RLQ, but much improved. Physical Exam Physical Exam: awake/alert, no distress Gastrointestinal (Abdomen): Inspection/Auscultation: abdomen not distended Percussion/Palpation: + abdomen tender (mild discomfort to deep palpation in RLQ, improved from yest) and abdomen soft Results & Data ([facility]) Vital Signs (Past 12 Hours) Vital Signs Temp Pulse Resp BP Pulse Ox 11/24/21 07:56 36.9 C 70 16 96/60 L 99 11/23/21 21:29 36.9 C 79 16 95/58 L 98 PG Care Time/CCT Total # of Minutes Spent Total Time Spent with Patient: Total time spent is greater than 50% in coordination of care (as documented) at patient's floor/unit and/or counseling patient: Coding Level of Care Code 85743 Subseq Hosp Care Lvl 1 Diagnoses SBO (small bowel obstruction) K56.609
[2021-11-24] MEDS ORDERED: SERTRALINE HCL 100 MG TABLET PO SCH (09:00)
--- NOTE | 2021-11-25 12:09 | Discharge Summary ---
Date of Service November 25, 2021 Admission HPI Per Admitting Provider This is a 26-year-old female who presented to [facility] emergency department secondary to abdominal pain. The patient notes that she was feeling fine yesterday and earlier today in her usual state of health. Patient says that she ate lunch at approximately 2:00 PM but 3:00 PM she developed sudden onset of generalized abdominal pain. She did have associated nausea and vomiting. The patient denies any fevers, shakes, or chills. She notes that she had a normal bowel movement last night. Patient says that the pain radiates through to her back. She does not identify any palliative or provocative factors. She denies any prior abdominal surgeries. Patient does note that she is sensitive to gluten but has never formally been diagnosed with celiac disease. Because of her symptomatology she presented to the emergency department. In the emergency department the patient had labs and imaging which I independently reviewed. CBC revealed white blood cell count was slightly elevated at 10.8. Hemoglobin and hematocrit were both noted to be normal as was her platelet count. Chemistry profile showed sodium, potassium, BUN, and creatinine were all normal. There were no elevation of her LFTs or lipase. A test was negative. Urinalysis was not indicative of infection. And a COVID test was negative. As the patient did report a history of previous ovarian cysts a pelvic ultrasound was performed. This study was noted to be normal. Since arrival to the emergency department the patient has received analgesics in the form of morphine as well as Zofran. She continued to have nausea so the treating emergency room physician did order an NG tube was placed. Upon placement of the NG tube the patient had some further emesis but the NG tube did drain approximately 200 cc of bilious material. At the time of my interview she was in no distress. Principal Diagnosis small bowel obstruction colitis Discharge Exam awake/alert Gastrointestinal (Abdomen) Inspection/Auscultation: abdomen not distended Percussion/Palpation: + abdomen tender (some discomfort to deep palpation in the RLQ) and abdomen soft Discharge Data Allergies Allergy/AdvReac Type Severity Reaction Status Date / Time cat dander Allergy Intermediate Cough, Verified 11/22/21 19:02 SNEEZING, RUNNY NOSE dog dander Allergy Intermediate Cough, Verified 11/22/21 19:02 SNEEZING, RUNNY NOSE gluten Allergy Intermediate Gastrointestinal Verified 11/22/21 19:02 Upset-HEADACHE ENVIRONMENTAL Allergy Intermediate Cough, Uncoded 11/22/21 19:02 SNEEZING, RUNNY NOSE Consultations 11/22/21 20:49 Consult General Surgery Stat Ordered Studies 11/22/21 18:08 CT abd pelvis wo con Stat 11/22/21 19:18 US pelvic complete Stat US transvaginal Stat 11/23/21 07:10 CT abd pelvis oral and IV con Urgent Hospital Course (1) SBO (small bowel obstruction): This is a 26yF with no past abdominal surgical history who presented to the [facility] ED on 11/22/21 with complaints of abdominal pain and nausea/vomiting. A CT a/p was performed that revealed findings concerning for a small bowel obstruction. An NGT was inserted and patient was kept NPO with IVF for bowel rest. On 11/[address] scan was obtained with both IV and PO contrast. This scan revealed contrast reaching the colon and resolution of previously read SBO. It also commented on some mild wall thickening of the cecum which could be related to underdistention vs. a colitis. We started patient on cipro/flagyl for concerns of colitis. NGT was removed and she started on clear liquids. In the evening she continued to feel better, was passing flatus and BMs, therefore diet was advanced to regular. On 11/24 she continued to feel well. Diet tolerated without further nausea/vomiting and pain much improved. She was having + bowel function. She was deemed stable for discharge to home with plans to complete a course of antibiotic as an outpatient and to follow up with her PCP and possibly GI. Total Time Total Time Spent Total Time Spent (In Minutes): 15 Discharge Plan Discharge Items Patient Disposition: Home - Self-Care Reason For Visit: SBO Discharge Diagnosis: abdominal pain Condition on Discharge: Fair Activity: Per Instructions section Lifting: Gradually increase as tolerated Bathing: No limitations Exercise/Sports: Gradually increase as tolerated Driving/Machine Use: Resume 1 day after discharge Non-emergency contact: Primary Care Provider and Surgeon Call non-emergency contact if: you have any medication questions, your symptoms worsen, your pain is not controlled, your pain is concerning for you, you have a fever and your temperature is above 101.5 Follow-up/Referrals: Ishaan Faye DO [Physician] - 12/10/21 9:00 am (A follow up appointment has been made for you with Dr. Ishaan Faye at [address] (in front of hospital). If you are unable to keep that appointment please call the office at [phone].) Gonzalo Le MD [Primary Care Provider] - Diet: Gluten Free Addtl Attending Provider Instructions: Pending Studies at Discharge: No Stand-Alone Forms: My [facility] Elliptic, Smoking Cessation Medications and DC Order Prescriptions: New ciprofloxacin HCl [Cipro] 500 mg tablet 500 mg PO BID Qty: 20 RF: 0 metronidazole 500 mg tablet 500 mg PO Q8H 10 Days Qty: 30 RF: 0 Continued fluticasone propionate 50 mcg/actuation [place],Suspension 1 spray INTRANASAL BID RF: 0 trazodone 50 mg tablet 25 mg PO HS RF: 0 sertraline 100 mg tablet 100 mg PO DAILY RF: 0 buspirone 10 mg tablet 10 mg PO BID RF: 0 norethindrone (contraceptive) 0.35 mg tablet 0.35 mg PO DAILY RF: 0 loratadine [Claritin] 10 mg Tablet 10 mg PO DAILY RF: 0 Discharge Orders: Discharge Order (Routine); Ordered 11/24/21 Ordered By: Leona Pedraza/Other Patient Handouts: Preventing Deep Vein Thrombosis Admission Data Admit Date/Time: 11/22/21 22:09 Attending Provider: Ishaan Faye Admit Provider: Ishaan Faye Primary Care Provider: Gonzalo Le Other Providers: Ishaan Faye Other Interventions: Discharge Summary Assessment (RN) Last Done: 11/24/21 11:45 Coding Level of Care Code D/C DAY MANAGEMENT <30 MINS Diagnoses SBO (small bowel obstruction) K56.609
== END 2021-11-24 13:54 | disposition home or self-care (01) | DRG 392 ==
LOC: ED 16:56 → 3E 22:09